=== PATIENT | female | born 1995 | race American Indian/Alaskan Native ===

== ENCOUNTER 2021-03-19 22:39 | Emergency (ER) | payer MEDICAID ==
--- NOTE | 2021-03-20 03:02 | Emergency Department Report ---
ED General Adult HPI - General Chief complaint: Chest Pain Stated complaint: HEART RATE CHANGING Time Seen by Provider: 03/20/21 02:31 Source: patient Mode of arrival: Ambulatory Limitations: No Limitations - History of Present Illness Initial comments: Patient is a 25-year-old female who presents emergency room complaints of palpitations that began at 5:30 AM yesterday morning. Patient states it feels like her heart has the sensation of intermittent feeling of being on a roller coaster. He denies any chest pain, shortness of breath, fever, vomiting, diarrhea, leg swelling, calf pain. She denies any sick contacts, recent travel, recent surgery, hormone use. No past medical history. No allergies to medications. She states her last menstrual cycle was the end of February. - Related Data Allergies Allergy/AdvReac Type Severity Reaction Status Date / Time No Known Allergies Allergy Unverified 03/20/21 01:09 ED Review of Systems ROS: Stated complaint: HEART RATE CHANGING Other details as noted in HPI ED Past Medical Hx - Past Medical History Previous Medical History?: No - Surgical History Past Surgical History?: No ED Physical Exam - General Limitations: No Limitations ED Course Vital Signs 03/20/21 03/20/21 01:06 03:57 Temperature 97.6 F 98.6 F Pulse Rate 63 63 Respiratory 18 16 Rate Blood Pressure 146/60 Blood Pressure 134/86 [Right] O2 Sat by Pulse 100 100 Oximetry ED Medical Decision Making - Lab Data Result diagrams: 03/20/21 02:42 03/20/21 02:42 Lab Results 03/20/21 03/20/21 03/20/21 Range/Units 02:42 02:42 02:42 WBC 5.9 (4.5-11.0) K/mm3 RBC 4.06 (3.65-5.03) M/mm3 Hgb 11.3 (10.1-14.3) gm/dl Hct 35.3 (30.3-42.9) % MCV 87 (79-97) fl MCH 28 (28-32) pg MCHC 32 (30-34) % RDW 15.0 (13.2-15.2) % Plt Count 248 (140-440) K/mm3 Lymph % (Auto) Supervisor Fleshing Seg Neutrophils % Supervisor Fleshing Sodium 143 (137-145) mmol/L Potassium 3.9 (3.6-5.0) mmol/L Chloride 108.8 H (98-107) mmol/L Carbon Dioxide 23 (22-30) mmol/L Anion Gap 15 mmol/L BUN 12 (7-17) mg/dL Creatinine 0.8 (0.6-1.2) mg/dL Estimated GFR > 60 ml/min BUN/Creatinine Ratio 15 % Glucose 98 (65-100) mg/dL Calcium 9.1 (8.4-10.2) mg/dL Magnesium 1.80 (1.7-2.3) mg/dL Total Bilirubin 0.20 (0.1-1.2) mg/dL AST 16 (5-40) units/L ALT 11 (7-56) units/L Alkaline Phosphatase 56 (35-129) units/L Troponin T < 0.010 (0.00-0.029) ng/mL Total Protein 7.3 (6.3-8.2) g/dL Albumin 4.4 (3.9-5) g/dL Albumin/Globulin Ratio 1.5 % TSH 4.320 H (0.270-4.200) mlU/mL Thyroxine (T4) (4.0-12.0) ug/dL HCG, Qual (Negative) 03/20/21 03/20/21 Range/Units 02:42 Unknown WBC (4.5-11.0) K/mm3 RBC (3.65-5.03) M/mm3 Hgb (10.1-14.3) gm/dl Hct (30.3-42.9) % MCV (79-97) fl MCH (28-32) pg MCHC (30-34) % RDW (13.2-15.2) % Plt Count (140-440) K/mm3 Lymph % (Auto) Seg Neutrophils % Sodium (137-145) mmol/L Potassium (3.6-5.0) mmol/L Chloride (98-107) mmol/L Carbon Dioxide (22-30) mmol/L Anion Gap mmol/L BUN (7-17) mg/dL Creatinine (0.6-1.2) mg/dL Estimated GFR ml/min BUN/Creatinine Ratio % Glucose (65-100) mg/dL Calcium (8.4-10.2) mg/dL Magnesium (1.7-2.3) mg/dL Total Bilirubin (0.1-1.2) mg/dL AST (5-40) units/L ALT (7-56) units/L Alkaline Phosphatase (35-129) units/L Troponin T (0.00-0.029) ng/mL Total Protein (6.3-8.2) g/dL Albumin (3.9-5) g/dL Albumin/Globulin Ratio % TSH (0.270-4.200) mlU/mL Thyroxine (T4) 8.0 (4.0-12.0) ug/dL HCG, Qual Negative (Negative) Vital Signs 03/20/21 03/20/21 01:06 03:57 Temperature 97.6 F 98.6 F Pulse Rate 63 63 Respiratory 18 16 Rate Blood Pressure 146/60 Blood Pressure 134/86 [Right] O2 Sat by Pulse 100 100 Oximetry - EKG Data EKG shows normal: sinus rhythm, axis, intervals, QRS complexes, ST-T waves Rate: normal - EKG Data 03/20/21 04:59 PAC - Radiology Data Radiology results: report reviewed Ordering Physician: KENDRA WADE Date of Service: 03/20/21 Procedure(s): XR chest routine 2V Accession Number(s): [id number] cc: KENDRA WADE Fluoro Time In Minutes: CHEST 2 VIEWS INDICATION / CLINICAL INFORMATION: palpitations. COMPARISON: None available. FINDINGS: SUPPORT DEVICES: None. HEART / MEDIASTINUM: No significant abnormality. LUNGS / PLEURA: No significant pulmonary or pleural abnormality. No pneumothorax. ADDITIONAL FINDINGS: No significant additional findings. IMPRESSION: 1. No active cardiopulmonary disease. Signer Name: Johnnie Donald II, MD Signed: 03/20/2021 4:16 AM Workstation Name: [id number] Transcribed By: JON Dictated By: JOHNNIE DONALD II, MD Electronically Authenticated By: JOHNNIE DONALD II, MD Signed Date/Time: 03/20/21415 DD/ 5 TD/TT: - Medical Decision Making Patient is a 25-year-old female who presents emergency room complaints of palpitations that began at 5:30 AM yesterday morning. Patient states it feels like her heart has the sensation of intermittent feeling of being on a roller coaster. He denies any chest pain, shortness of breath, fever, vomiting, diarrhea, leg swelling, calf pain. She denies any sick contacts, recent travel, recent surgery, hormone use. No past medical history. No allergies to medications. She states her last menstrual cycle was the end of February. vitals are stable. EKG is WNL. labs with elevated TSH, t4 is normal, otherwise labs are stable. troponin is negative. Heart score is 0, low risk for cardiac event. PERC negative for PE, PE unlikely. Patient will be referred to primary care doctor regarding elevated TSH. She'll be referred to cardiology for palpitations. Advised patient Please follow-up with your primary care doctor. Please follow-up with a tool crib manager. Return to emergency room for any new or worsening symptoms. Critical care attestation.: If time is entered above; I have spent that time in minutes in the direct care of this critically ill patient, excluding procedure time. ED Disposition Clinical Impression: Palpitations, Elevated TSH Disposition: 01 HOME / SELF CARE / HOMELESS Is pt being admited?: No Does the pt Need Aspirin: No Condition: Stable Instructions: Palpitations, [id number] Additional Instructions: Please follow-up with your primary care doctor. Please follow-up with a cardiol ogist. Return to emergency room for any new or worsening symptoms. Referrals: ARIELLE SURESH MD [Staff Physician] - 3-5 Days [facility] [Provider Group] - 3-5 Days VÍCTOR OSORIO MD [Staff Physician] - 3-5 Days Time of Disposition: 04:58 Print Language: AZERI HEART Score - HEART Score History: Slightly suspicious EKG: Normal Age: < 45 Risk factors: No known risk factors Troponin: Troponin T < 0.010 ng/mL (0.00-0.029) 03/20/21 02:42 Troponin: < normal limit HEART Score: 0
[2021-03-20 03:58] VITALS: BP 134/86
[2021-03-20 04:03] LABS: Alanine Aminotransferase 11 units/L (7-56); Albumin 4.4 g/dL (3.9-5); BUN/Creatinine Ratio 15; Blood Urea Nitrogen 12 mg/dL (7-17); Calcium 9.1 mg/dL (8.4-10.2); Hemolysis Index 4
--- NOTE | 2021-03-20 04:21 | XRay Report ---
CHEST 2 VIEWS INDICATION / CLINICAL INFORMATION: palpitations. COMPARISON: None available. FINDINGS: SUPPORT DEVICES: None. HEART / MEDIASTINUM: No significant abnormality. LUNGS / PLEURA: No significant pulmonary or pleural abnormality. No pneumothorax. ADDITIONAL FINDINGS: No significant additional findings. IMPRESSION: 1. No active cardiopulmonary disease. Signer Name: Michael Estrada II, MD Signed: 03/20/2021 4:16 AM Workstation Name: [id number]
[2021-03-20 04:30] LABS: Hematocrit 35.3 % (30.3-42.9); Hemoglobin 11.3 gm/dl (10.1-14.3); Mean Corpuscular HGB Conc 32 % (30-34); Mean Corpuscular Volume 87 fl (79-97); Platelet Count 248 K/mm3 (140-440); Red Blood Count 4.06 M/mm3 (3.65-5.03)
[2021-03-20 08:16] LABS: Platelet Estimate Consistent w Auto; Total Cells Counted 100
--- NOTE | 2021-03-20 10:56 | Electrocardiograph Report ---
[facility] Test Date: 2021-03-20 Test Time: 03:35:55 Pat Name: ARLENE BELL Department: Room: Gender: F Manager Valuation: [id number] : 1995 Requested By: MAGRY MORA Order Number: [id number] Reading MD: Sánchez Schmidt Measurements Intervals [place] Rate: 68 P: 55 WA: 135 QRS: 84 QRSD: 83 T: 69 QT: 388 QTc: 402 Interpretive Statements Sinus rhythm Atrial premature complex No previous ECG available for comparison Electronically Signed On 03-20-2021 10:56:11 EST by Sánchez Schmidt
== END 2021-03-20 05:27 | disposition home or self-care (01) ==
LOC: ED 22:39
DX: R00.2 Palpitations (principal); R94.6 Abnormal results of thyroid function studies
CPT/HCPCS: 36415; 71046; 80053; 83735; 84436; 84443; 84484; 84703; 85007; 85025; 93005; 93010; 99283